=== PATIENT | male | born 1960 | race Caucasian/White ===

== ENCOUNTER → 2018-04-23 | Outpatient (CLI) | payer OTHER ==
--- NOTE | 2018-04-23 23:00 | CT ---
EXAMINATION TYPE: CT lumbar spine wo con DATE OF EXAM: 04/23/2018 COMPARISON: None HISTORY: 58-year-old male with lumbago, chronic low back pain, no injury TECHNIQUE: Contiguous axial scanning of the lumbar spine without IV contrast. Coronal and sagittal re constructions performed. CT DLP: 992 mGycm Automated exposure control for dose reduction was used. FINDINGS: There is a transitional lumbosacral segment which will be denoted as a sacralized L5. There is assimi lation joint on the right and complete bony fusion with the sacrum on the left. Vertebral body heights are preserved and alignment is maintained. Mild to moderate degenerative disc disease at L3-L4 and L4-L5 with disc space narrowing and bulging d isc. Mild facet arthropathy mid to lower lumbar spine. At L2-L3, mild disc bulge and left intraforaminal disc osteophyte complex. This causes moderate left- sided neural foraminal stenosis. No significant spinal canal stenosis. At L3-L4, there is broad-based diffuse disc bulge and right-sided interforaminal disc osteophyte comp lisseth. Changes result in moderate right greater than left neuroforaminal stenosis. Ventral indentation of the thecal sac without significant spinal canal stenosis. At L4-L5, there is bulging disc and disc space narrowing contributing to moderate right neuroforamina l stenosis. No significant spinal canal stenosis. At L5-S1, no spinal canal or foraminal stenosis. IMPRESSION: 1. TRANSITIONAL LUMBOSACRAL SEGMENT DENOTED A SACRALIZED L5. THIS HAS AN ASSIMILATION JOINT ON THE RIGHT AND COMPLETE BONY FUSION WITH THE SACRUM ON THE LEFT. 2. DEGENERATIVE DISC DISEASE FROM L2 THROUGH L5 LEVELS. 3. POSTERIOR DISC PROTRUSION AT L3-L4 WITH A RIGHT INTRAFORAMINAL DISC OSTEOPHYTE COMPLEX ; THIS CONT RIBUTES TO MODERATE RIGHT GREATER THAN LEFT NEUROFORAMINAL STENOSIS. 4. AT L2-L3, MODERATE LEFT NEURAL FORAMINAL STENOSIS AND AT L4-L5, MODERATE RIGHT NEURAL FORAMINAL ST ENOSIS.
== END | disposition home or self-care (01) ==
LOC: RADCTMAIN 19:01
PROVIDERS: ATTEND Psychiatry & Neurology Neurology
DX: M99.73 Connective tissue and disc stenosis of intervertebral foramina of lumbar region (principal); M51.26 Other intervertebral disc displacement, lumbar region; M51.36 Other intervertebral disc degeneration, lumbar region
CPT/HCPCS: 72131

== ENCOUNTER → 2020-08-03 | Outpatient (CLI) | payer OTHER | END | disposition home or self-care (01) | LOC: LABWHC1 15:20 | PROVIDERS: ATTEND Nurse Practitioner Family | DX: Z20.828 Contact with and (suspected) exposure to other viral communicable diseases (principal) | CPT/HCPCS: U0003; C9803 ==

== ENCOUNTER → 2020-09-30 | Outpatient (CLI) | payer OTHER ==
[2020-09-30 20:19] LABS: African American GFR (CKD) 95.1 (60.0-200.0); Albumin 4.7 g/dL (3.80-4.90); Anion Gap 3.6 mmol/L (4.00-12.00); Calcium 9.6 mg/dL (8.7-10.3); Carbon Dioxide 30.4 mmol/L (21.6-31.8); Potassium 4.8 mmol/L (3.5-5.5)
== END | disposition home or self-care (01) ==
LOC: LABWHC1 10:01
PROVIDERS: ATTEND Internal Medicine Nephrology
DX: E78.5 Hyperlipidemia, unspecified (principal); N17.9 Acute kidney failure, unspecified; Z79.1 Long term (current) use of non-steroidal anti-inflammatories (NSAID); N18.2 Chronic kidney disease, stage 2 (mild); I12.9 Hypertensive chronic kidney disease with stage 1 through stage 4 chronic kidney disease, or unspecified chronic kidney disease; J44.1 Chronic obstructive pulmonary disease with (acute) exacerbation
CPT/HCPCS: 36415; 80048; 82040; 83735; 84100

== ENCOUNTER → 2020-10-04 | Outpatient (CLI) | payer OTHER ==
--- NOTE | 2020-10-05 11:02 | P.ARTDOP ---
Arterial Doppler LOWER EXTREMITY ARTERIAL DOPPLER: DATE OF SERVICE: 10/04/2020 Reason for study: Right leg numbness. Doppler waveforms: Multiphasic bilaterally throughout. Pulse volume recording: []. Pressure gradients: None. Ankle-brachial indices: 0.95 on the right and greater than 1 on the left. Toe brachial indices: 0.64 on the right, 0.71 on the left Impression: Normal study.
== END | disposition home or self-care (01) ==
LOC: RADUSWWP 10:16
PROVIDERS: ATTEND Family Medicine
DX: R20.0 Anesthesia of skin (principal)
CPT/HCPCS: 93923

== ENCOUNTER → 2022-09-19 | Outpatient (CLI) | payer OTHER ==
[2022-09-19 17:48] LABS: HCT 47.5 % (39.6-50.0); HGB 15.4 g/dL (13.0-17.0); MCH 29.2 pg (27.0-32.0); MCHC 32.4 g/dL (32.0-37.0); Mean Platelet Volume 9.5 fL (9.5-12.2); NRBC Per 100 WBC 0 /100 WBCS (0.0-0.0); Platelet Count 272 X 10*3/uL (140-440); RBC 5.28 X 10*6/uL (4.40-5.60); RDW 14.1 % (11.5-14.5); WBC 9.42 X 10*3/uL (4.50-10.00)
[2022-09-19 19:46] LABS: African American GFR (CKD) 78.3 (60.0-200.0); Albumin 4.4 g/dL (3.8-4.9); Anion Gap 9.4 mmol/L (10.00-18.00); BUN/Creat Ratio 12.93 Ratio (12.00-20.00); Calcium 9.8 mg/dL (8.7-10.3); Carbon Dioxide 27.9 mmol/L (20.0-27.5); Magnesium 2.2 mg/dL (1.5-2.4); Non-African American GFR(CKD) 67.6 (60.0-200.0); Phosphorus 3.6 mg/dL (2.4-5.1); Potassium 4.4 mmol/L (3.5-5.5); Uric Acid 6.3 mg/dL (3.7-8.7)
== END | disposition home or self-care (01) ==
LOC: LABWHC1 12:20
PROVIDERS: ATTEND Internal Medicine Nephrology
DX: I12.9 Hypertensive chronic kidney disease with stage 1 through stage 4 chronic kidney disease, or unspecified chronic kidney disease (principal); E78.5 Hyperlipidemia, unspecified; N17.9 Acute kidney failure, unspecified; N18.2 Chronic kidney disease, stage 2 (mild)
CPT/HCPCS: 36415; 80048; 82040; 83036; 83735; 84100; 84550; 85027

== ENCOUNTER → 2024-02-18 | Outpatient (CLI) | payer OTHER ==
--- NOTE | 2024-02-20 14:35 | MR ---
EXAMINATION TYPE: MR abdomen wo/w con DATE OF EXAM: 02/18/2024 9:52 PM CLINICAL INDICATION:Male, 64 years old with history of K86.89 OTHER SPECIFIED DISEASES OF PANCREAS; P HH, Pancreatic mass COMPARISON: CT lumbar spine 04/23/2018 TECHNIQUE: Multiplanar multi-sequence imaging was performed without contrast. Post contrast imaging was performed. Post IV contrast subtraction images were also submitted for review. IV Contrast: 6.5 cc Gadavist FINDINGS: LOWER CHEST: No gross irregularity. ABDOMEN Liver: No evidence for cirrhosis. Signal dropout on chemical shift out of phase imaging. Gallbladder and Bile ducts: No evidence for ductal dilation, or biliary stricture or evidence of chol edocholithiasis. The gallbladder is within normal limits. Pancreas: There is a pancreatic head hypoenhancing mass measuring 17 x 12 mm postcontrast imaging anayeli ge 147 and coronal imaging 52 series 1001. Cystic lesions in the pancreatic neck are seen in the post erior aspect with upstream prominence of the main bile duct measuring up to 3 mm in diameter. The 2 c ysts are high T2 signal cyst measuring 12 mm series 1 image 24 and image 25 which could represent dil ated side ducts. Spleen: Normal for size. Adrenal glands: Unremarkable. Kidneys: No evidence for obstructive uropathy. No suspicious renal masses. Stomach and Bowel: No evidence for bowel wall thickening or evidence for obstruction. Retroperitoneum/Peritoneum: No evidence of pneumoperitoneum or free fluid. Vasculature: No aortic aneurysm. Musculoskeletal: The osseous structures appear intact. Lymph Nodes: No gross evidence for lymphadenopathy. Abdominal wall: Unremarkable. IMPRESSION: 1. Pancreatic head hypoenhancing lesion causing upstream dilation of the main pancreatic duct with c ystic lesions possibly representing dilated side branches. ERCP with tissue sampling recommended to r ule out pancreatic adenocarcinoma. Correlate with serum marker CA 19-9. 2. Hepatic steatosis.
== END | disposition home or self-care (01) ==
LOC: RADMRIMAIN 20:30
PROVIDERS: ATTEND Family Medicine
DX: K76.0 Fatty (change of) liver, not elsewhere classified (principal); K86.89 Other specified diseases of pancreas
CPT/HCPCS: 74183; A9585

== ENCOUNTER → 2024-09-17 | Outpatient (CLI) | payer OTHER ==
[2024-09-17 16:01] LABS: Basophils # (A) 0.04 X 10*3/uL (0.00-0.10); Basophils % (A) 0.7 %; Eosinophils % (A) 1.6 %; HGB 12.8 g/dL (13.0-17.0); Lymphocytes # (A) 0.83 X 10*3/uL (0.90-5.00); Lymphocytes % (A) 13.6 %; MCH 29.6 pg (27.0-32.0); MCV 92.6 FL (80.0-97.0); Mean Platelet Volume 10.5 FL (9.5-12.2); Monocytes % (A) 6.6 %; NRBC Per 100 WBC 0 X 10*3/uL (0.00-0.01); Neutrophils # (A) 4.72 X 10*3/uL (1.80-7.70); Neutrophils % (A) 77.3 %; Platelet Count 121 X 10*3/uL (140-440); RBC 4.32 X 10*6/uL (4.40-5.60); RDW 15.3 % (11.5-14.5)
[2024-09-17 17:19] LABS: ALT 44 U/L (10-49); AST 27 U/L (14-35); Albumin 3.1 g/dL (3.8-4.9); Alkaline Phosphatase 570 U/L (41-126); BUN/Creat Ratio 18.71 Ratio (12.00-20.00); Bilirubin, Conjugated 4.33 mg/dL (0.20-0.40); Bilirubin,Unconjugated 1.37 mg/dL (0.20-1.00); Blood Urea Nitrogen 13.1 mg/dL (9.0-27.0); Calcium 8.9 mg/dL (8.7-10.3); Chloride 98 mmol/L (96-109); Globulin 3.1 g/dL (1.6-3.3); Glucose 170 mg/dL (70-110); Potassium 3.7 mmol/L (3.5-5.5); Sodium 136 mmol/L (135-145); Total Bilirubin 5.7 mg/dL (0.3-1.2); Total Protein 6.2 g/dL (6.2-8.2)
== END | disposition home or self-care (01) ==
LOC: LABWHC1 12:05
PROVIDERS: ATTEND Radiology Radiation Oncology
DX: C25.0 Malignant neoplasm of head of pancreas (principal)
CPT/HCPCS: 36415; 80048; 80076; 85025

== ENCOUNTER 2024-11-21 21:04 | Emergency (ER) | payer OTHER ==
[2024-11-21 21:17] VITALS: TEMP 96.9
--- NOTE | 2024-11-21 21:30 | ED ---
General Adult HPI - General Chief complaint: GI Bleed Stated complaint: Abdominal Pain Time Seen by Provider: 11/21/24 21:07 Source: EMS Mode of arrival: EMS - History of Present Illness Initial comments: Patient is a 64-year-old gentleman with a past medical history of pancreatic cancer with metastases to the liver presenting today for multiple episodes of black emesis this evening and abdominal pain. This morning patient had an episode of nonbloody nonbilious emesis. He was tired for most of the day and spent most of the day on the couch. This evening he then went to the bathroom and began having multiple episodes of black tarry emesis. Endorses associated lightheadedness/dizziness and shortness of breath. He does smoke cigars but not cigarettes. Denies any chest pain, cough or hemoptysis. He is not on blood thinners. Endorses diffuse abdominal pain. States last BM was 1 day ago. Endorses subjective fevers and chills. - Related Data Home Medications Medication Instructions Recorded Confirmed Citalopram Hydrobromide [CeleXA] 20 mg PO DAILY 04/01/14 07/31/16 HYDROcodone/APAP 10-325MG [Ring[place] 1 tab PO TID PRN 04/01/14 07/31/16 10-325] Omeprazole [PriLOSEC] 20 mg PO AC-BRKFST 04/01/14 07/31/16 Prazosin [Minipress] 1 mg PO TID 07/31/16 07/31/16 Pregabalin [Lyrica] 225 mg PO BID 07/31/16 07/31/16 Allergies Allergy/AdvReac Type Severity Reaction Status Date / Time No Known Allergies Allergy Verified 11/21/24 21:17 Review of Systems ROS Statement: Those systems with pertinent positive or pertinent negative responses have been documented in the HPI. ROS Other: All systems not noted in ROS Statement are negative. Past Medical History Past Medical History: Cancer, Hypertension Additional Past Medical History / Comment(s): chronic sciatic nerve pain, bradycardia, heart murmur, pancreatic cancer with metastisis to Liver. History of Any Multi-Drug Resistant Organisms: None Reported Past Surgical History: Heart Catheterization, Orthopedic Surgery, Tonsillectomy Additional Past Surgical History / Comment(s): bilateral rotator cuffs. Past Anesthesia/Blood Transfusion Reactions: No Reported Reaction Past Psychological History: No Psychological Hx Reported Smoking Status: Current some day smoker Past Alcohol Use History: Daily Past Drug Use History: None Reported General Exam - General Exam Comments Initial Comments: PE: CONSTITUTIONAL: no apparent distress, chronically ill-appearing, cachectic SKIN: Cool, dry, jaundiced, no hives or petechiae EYES: pupils are equally round, extraocular movements intact without nystagmus, clear conjunctiva, scleral icterus HENT: Normocephalic, atraumatic, dry mucus membranes, oropharynx is clear with a dry black emesis around mouth NECK: , Full range of motion, normal appearance PULMONARY: Scant wheezes throughout the bilateral lung modi without rales, rhonchi or stridor, normal excursion accessory muscle use CARDIOVASCULAR: Regular rate, rhythm, normal S1 and S2. No appreciated murmurs, rubs or gallops. 1+ radial pulses,. No lower extremity edema GASTROINTESTINAL:soft, active bowel sounds throughout, diffusely tender, predominantly in the epigastrium, nondistended, firm, palpable hepatomegaly MUSCULOSKELETAL: Extremities have no gross deformity NEUROLOGIC:_a/o x 3, GCS 15, normal mentation and speech. Moves all extremities x 4 without motor or sensory deficit PSYCHIATRIC:_normal mood and affect, thought process is clear and linear Course Vital Signs 11/21/24 11/21/24 11/21/24 21:07 21:25 21:57 Temperature 96.9 F L Pulse Rate 75 Respiratory 20 Rate Blood Pressure 95/22 104/73 83/52 O2 Sat by Pulse 88 L Oximetry 11/21/24 11/21/24 11/21/24 22:04 22:07 22:16 Temperature Pulse Rate 108 H 108 H Respiratory 20 Rate Blood Pressure 89/56 101/89 O2 Sat by Pulse Oximetry 11/21/24 11/21/24 22:21 23:38 Temperature Pulse Rate 112 H 111 H Respiratory 18 Rate Blood Pressure 85/56 O2 Sat by Pulse 93 L Oximetry Medical Decision Making - Medical Decision Making Was pt. sent in by a medical professional or institution (, [facility], PRINTING PRESS OPERATOR, urgent care, hospital, or shelter...) When possible be specific @ -No Did you speak to anyone other than the patient for history (EMS, parent, family, police, friend...)? What history was obtained from this source @I spoke with EMS personnel patient sister who assisted in writing history. EMS report that patient initially to systolic pressure of 80 however after sees IV fluids patient had stable BPs for the remainder arrival to the hospital. He was noted to have black vomit on his clothing by EMS personnel. Patient sister states that patient has not had a bowel movement for 3 days and today has had multiple episodes of emesis, 1 episode this morning and then this evening multiple episodes, dark black. Patient is set to begin another round of chemotherapy in the next few days. Were old charts reviewed (outside hosp., previous admission, EMS record, old EKG, old radiological studies, urgent care reports/EKG's, shelter records)? Report findings @ -Medical records reviewed-MRI of the abdomen performed on 02/18/2024 showed a "pancreatic head hypoenhancing lesion with upstream dilation of the main pancreatic duct with cystic lesions possibly presenting dilated sidebranches, ERCP with tissue sampling recommended to rule pancreatic adenocarcinoma hepatic steatosis" Differential Diagnosis (chest pain, altered mental status, abdominal pain women, abdominal pain men, vaginal bleeding, weakness, fever, dyspnea, syncope, headache, dizziness, GI bleed, back pain, seizure, CVA, palpatations, mental health, musculoskeletal)? @ -Differential GI Bleed: Esophageal varices, aortoenteric fistula, Arin-Guajardo, gastritis, peptic ulcer disease, diverticulosis, inflammatory bowel disease, hemorrhoids, fissure, colitis, malignancy, Meckel's diverticulum, this is not meant to be an all- inclusive list. EKG interpreted by me (3pts min.). @ -Tachycardia with shortened VT interval, VT interval 112 ms QT/QTc 348/413 ms, there is artifact present,right atrial enlargement, questionable 1mm ST depression, lead III, no STEMI X-rays interpreted by me (1pt min.). @Personally reviewed chest x-ray, I see no evidence of cardiomegaly, consolidations, pneumothorax or pleural effusions, lungs do appear hyperinflated, I agree with radiologist interpretation CT interpreted by me (1pt min.). @ -None done U/S interpreted by me (1pt. min.). @ -None done What testing was considered but not performed or refused? (CT, X-rays, U/S, labs)? Why? CT GI bleed study was considered however waiting on lab results and then CT scan would further delay transfer for definitive care What meds were considered but not given or refused? Why? @O negative PRBCs were ordered and considered however were not prepared in time to be administered prior to transfer Did you discuss the management of the patient with other professionals (professionals i.e. , PA, PRINTING PRESS OPERATOR, lab, RT, psych nurse, director social welfare, lawyers, teacher, retirement officer, case management social worker)? Give summary @ -Yes, case discussed with transferring physician at [facility], please see note below Was smoking cessation discussed for >3mins.? @ -No Was critical care preformed (if so, how long)? Yes 35 minutes Were there social determinants of health that impacted care today? How? (Homelessness, low income, unemployed, alcoholism, drug addiction, transportation, low edu. Level, literacy, decrease access to med. care, senior care, rehab)? @ -No Was there de-escalation of care discussed even if they declined (Discuss DNR or withdrawal of care, Hospice)? @no What co-morbidities impacted this encounter? (DM, HTN, Smoking, COPD, CAD, Cancer, CVA, ARF, Chemo, Hep., AIDS, mental health diagnosis, sleep apnea, morbid obesity)? @ -Pancreatic cancer with metastasis to the liver Was patient admitted / discharged? Hospital course, mention meds given and route, prescriptions, significant lab abnormalities, going to OR and other pertinent info. @Transfer-this is a pleasant 64-year-old gentleman, past medical history of pancreatic cancer with metastases to the liver, presenting today for multiple episodes of dark black emesis this evening. Patient seen and assessed on arrival, he is chronically ill-appearing, jaundiced and cachectic. Dry mucous membranes. Pulse ox 88% on room air, initial blood pressure has a MAP of 73 however repeat is MAP 63, no tachycardia. Wheezing bilateral lung modi. A bdomen is diffusely tender nondistended. Hepatomegaly noted. Patient most likely has an upper GI bleed and we do not have gastroenterology here at this hospital tonight. Ordered Protonix, type and cross, liter IV fluids, Rocephin, comprehensive labs, chest x-ray, fentanyl, DuoNeb. I discussed with patient and his sister the need for immediate transfer for gastroenterology consult for upper GI bleed. They are agreeable w/ plan for vimal. Initiated request for transfer to [facility], where patient's oncologist, Dr. Nicholson, works. I did ultimately decide to order a unit of O negative blood given patient's hypotension and multiple episodes coffee ground emesis, so as to further sta bilize pt for transfer, labs pending. Case discussed with Dr. Burciaga, [facility], ED, kindly accepts pt for transfer . Initial hemoglobin is 14.1 however I suspect this either is an error or not a ccurately reflective of patient's hemoglobin as he remains hypotensive despite liter IV fluid, pale and had multiple episodes coffee-ground emesis prior to arrival. No further episodes since being here, unit of PRBCs is pending, I do not wish to delay transfer for definitive treatment in order to wait for blood so patient may be transferred without starting blood transfusion, otherwise blood work significant for white blood cell count 1.2, chloride 90, bicarb 20, creatinine 1.8, GFR 39, total bilirubin 4.8, AST/ALT 137/184, alk phos 549 troponin 0.016. Blood will not be ready by the time EMS arrives. The patient has been stabilized to the best of our abilities and I feel further delay in transfer to center with definitive care would be detrimental to the patient. I did discuss this with patient and sister at bedside. Patient will be sent on maintenance fluids, called [facility] department, spoke with Dr. Navarro to update them to labs and patient status. Undiagnosed new problem with uncertain prognosis? @ -No Drug Therapy requiring intensive monitoring for toxicity (Heparin, Nitro, Insulin, Cardizem)? @ -No Were any procedures done? @ -No Diagnosis/symptom? @ Upper GI bleed Acute, or Chronic, or Acute on Chronic? @acute Uncomplicated (without systemic symptoms) or Complicated (systemic symptoms)? @complicated Side effects of treatment? @ -No Exacerbation, Progression, or Severe Exacerbation? @ -No Poses a threat to life or bodily function? How? (Chest pain, [place], [place], pneumonia, PE, COPD, DKA, ARF, appy, cholecystitis, CVA, Diverticulitis, Homicidal, Suicidal, threat to staff... and all critical care pts) @ Yes, if left untreated could result in hemorrhagic shock and - Lab Data Result diagrams: 11/21/24 21:34 11/21/24 21:34 Lab Results 11/21/24 11/21/24 11/21/24 Range/Units 21:33 21:34 21:34 WBC 11.2 H (3.8-10.6) k/uL RBC 4.55 (4.30-5.90) m/uL Hgb 14.1 (13.0-17.5) gm/dL Hct 45.7 (39.0-53.0) % MCV 100.4 H (80.0-100.0) fL MCH 31.0 (25.0-35.0) pg MCHC 30.8 L (31.0-37.0) g/dL RDW 14.1 (11.5-15.5) % Plt Count 248 (150-450) k/uL MPV 7.3 Neutrophils % 93 % Lymphocytes % 5 % Monocytes % 2 % Eosinophils % 0 % Basophils % 0 % Neutrophils # 10.4 H (1.3-7.7) k/uL Lymphocytes # 0.5 L (1.0-4.8) k/uL Monocytes # 0.2 (0-1.0) k/uL Eosinophils # 0.0 (0-0.7) k/uL Basophils # 0.0 (0-0.2) k/uL Hypochromasia Slight Macrocytosis Slight PT 11.5 (10.0-12.5) sec INR 1.0 (<1.2) APTT 20.7 L (22.0-30.0) sec Sodium (137-145) mmol/L Potassium (3.5-5.1) mmol/L Chloride (98-107) mmol/L Carbon Dioxide (22-30) mmol/L Anion Gap mmol/L BUN (9-20) mg/dL Creatinine (0.66-1.25) mg/dL Est GFR (CKD-EPI)AfAm (>60 ml/min/1.73 sqM) Est GFR (CKD-EPI)NonAf (>60 ml/min/1.73 sqM) Glucose (74-99) mg/dL Lactic Ac Sepsis Rflx Plasma Lactic Acid Tay (0.7-2.0) mmol/L Calcium (8.4-10.2) mg/dL Magnesium (1.6-2.3) mg/dL Total Bilirubin (0.2-1.3) mg/dL AST (17-59) U/L ALT (4-49) U/L Alkaline Phosphatase (38-126) U/L Ammonia (<30) umol/L Troponin I 0.016 (0.000-0.034) ng/mL Total Protein (6.3-8.2) g/dL Albumin (3.5-5.0) g/dL Lipase (23-300) U/L Blood Type Blood Type Confirm Blood Type Recheck Bld Type Recheck Status Antibody Screen Spec Expiration Date 11/21/24 11/21/24 11/21/24 Range/Units 21:34 21:35 21:40 WBC (3.8-10.6) k/uL RBC (4.30-5.90) m/uL Hgb (13.0-17.5) gm/dL Hct (39.0-53.0) % MCV (80.0-100.0) fL MCH (25.0-35.0) pg MCHC (31.0-37.0) g/dL RDW (11.5-15.5) % Plt Count (150-450) k/uL MPV Neutrophils % % Lymphocytes % % Monocytes % % Eosinophils % % Basophils % % Neutrophils # (1.3-7.7) k/uL Lymphocytes # (1.0-4.8) k/uL Monocytes # (0-1.0) k/uL Eosinophils # (0-0.7) k/uL Basophils # (0-0.2) k/uL Hypochromasia Macrocytosis PT (10.0-12.5) sec INR (<1.2) APTT (22.0-30.0) sec Sodium 138 (137-145) mmol/L Potassium 4.3 (3.5-5.1) mmol/L Chloride 90 L (98-107) mmol/L Carbon Dioxide 20 L (22-30) mmol/L Anion Gap 28 mmol/L BUN 37 H (9-20) mg/dL Creatinine 1.80 H (0.66-1.25) mg/dL Est GFR (CKD-EPI)AfAm 45 (>60 ml/min/1.73 sqM) Est GFR (CKD-EPI)NonAf 39 (>60 ml/min/1.73 sqM) Glucose 197 H (74-99) mg/dL Lactic Ac Sepsis Rflx Plasma Lactic Acid Tay (0.7-2.0) mmol/L Calcium 9.5 (8.4-10.2) mg/dL Magnesium 2.1 (1.6-2.3) mg/dL Total Bilirubin 4.8 H (0.2-1.3) mg/dL AST 137 H (17-59) U/L ALT 184 H (4-49) U/L Alkaline Phosphatase 549 H (38-126) U/L Ammonia (<30) umol/L Troponin I (0.000-0.034) ng/mL Total Protein 7.6 (6.3-8.2) g/dL Albumin 4.1 (3.5-5.0) g/dL Lipase <10 L (23-300) U/L Blood Type O Positive Blood Type Confirm O Positive Blood Type Recheck No Previous Record Bld Type Recheck Status CABO Indicated Antibody Screen NEGATIVE Spec Expiration Date 11/24/2024 - 233911/21/24 11/21/24 Range/Units 21:59 23:02 WBC (3.8-10.6) k/uL RBC (4.30-5.90) m/uL Hgb (13.0-17.5) gm/dL Hct (39.0-53.0) % MCV (80.0-100.0) fL MCH (25.0-35.0) pg MCHC (31.0-37.0) g/dL RDW (11.5-15.5) % Plt Count (150-450) k/uL MPV Neutrophils % % Lymphocytes % % Monocytes % % Eosinophils % % Basophils % % Neutrophils # (1.3-7.7) k/uL Lymphocytes # (1.0-4.8) k/uL Monocytes # (0-1.0) k/uL Eosinophils # (0-0.7) k/uL Basophils # (0-0.2) k/uL Hypochromasia Macrocytosis PT (10.0-12.5) sec INR (<1.2) APTT (22.0-30.0) sec Sodium (137-145) mmol/L Potassium (3.5-5.1) mmol/L Chloride (98-107) mmol/L Carbon Dioxide (22-30) mmol/L Anion Gap mmol/L BUN (9-20) mg/dL Creatinine (0.66-1.25) mg/dL Est GFR (CKD-EPI)AfAm (>60 ml/min/1.73 sqM) Est GFR (CKD-EPI)NonAf (>60 ml/min/1.73 sqM) Glucose (74-99) mg/dL Lactic Ac Sepsis Rflx Y Plasma Lactic Acid Tay 7.0 H* (0.7-2.0) mmol/L Calcium (8.4-10.2) mg/dL Magnesium (1.6-2.3) mg/dL Total Bilirubin (0.2-1.3) mg/dL AST (17-59) U/L ALT (4-49) U/L Alkaline Phosphatase (38-126) U/L Ammonia 19 (<30) umol/L Troponin I (0.000-0.034) ng/mL Total Protein (6.3-8.2) g/dL Albumin (3.5-5.0) g/dL Lipase (23-300) U/L Blood Type Blood Type Confirm Blood Type Recheck Bld Type Recheck Status Antibody Screen Spec Expiration Date Disposition Clinical Impression: Upper GI bleed Disposition: OTHER INSTITUTION NOT DEFINED Condition: Serious Referrals: Edwar Barros MD [Primary Care Provider] - 1-2 days - Out of Hospital Transfer - Req. Specs Out of Hospital Transfer - Requested Specifics: Other Emergency Center ([facility])
--- NOTE | 2024-11-21 21:40 | XR ---
EXAMINATION TYPE: XR chest 1V portable DATE OF EXAM: 11/21/2024 9:35 PM COMPARISON: Chest radiograph 07/31/2016. CLINICAL INDICATION: Male, 64 years old with history of shortness of breath; [facility] TECHNIQUE: XR chest 1V portable Frontal view of the chest. FINDINGS: Lungs/Pleura: There is no evidence of pleural effusion, focal consolidation, or pneumothorax. Pulmonary vascularity: Unremarkable. Heart/mediastinum: Cardiomediastinal silhouette is unremarkable. Musculoskeletal: No acute osseous pathology. Other findings: None IMPRESSION: No acute cardiopulmonary disease/process. [facility], , 11/21/2024 9:38 PM
[2024-11-21] MEDS: PANTOPRAZOLE 40 MG/10 ML VIAL IVP STA (21:41)
[2024-11-21] MEDS: fentaNYL (PF) 50 MCG/ML 2 ML AMP IVP STA (21:41)
[2024-11-21] MEDS: SODIUM CHLORIDE 0.9% 1,000 ML IV STA (21:43)
[2024-11-21 21:44] LABS: Basophils % (A) 0 %; Eosinophils % (A) 0 %; HCT 45.7 % (39.0-53.0); HGB 14.1 gm/dL (13.0-17.5); Hypochromasia Slight; Lymphocytes # (A) 0.5 k/uL (1.0-4.8); Lymphocytes % (A) 5 %; MCHC 30.8 g/dL (31.0-37.0); MCV 100.4 fL (80.0-100.0); Macrocytosis Slight; Mean Platelet Volume 7.3; Monocytes # (A) 0.2 k/uL (0-1.0); Monocytes % (A) 2 %; Neutrophils # (A) 10.4 k/uL (1.3-7.7); Neutrophils % (A) 93 %; Platelet Count 248 k/uL (150-450); RBC 4.55 m/uL (4.30-5.90); RDW 14.1 % (11.5-15.5); WBC 11.2 k/uL (3.8-10.6)
[2024-11-21 21:53] LABS: AST 137 U/L (17-59); African American GFR (CKD) 45 (>60 ml/min/1.73 sqM); Albumin 4.1 g/dL (3.5-5.0); Anion Gap 28 mmol/L; Blood Urea Nitrogen 37 mg/dL (9-20); Calcium 9.5 mg/dL (8.4-10.2); Carbon Dioxide 20 mmol/L (22-30); Chloride 90 mmol/L (98-107); Glucose 197 mg/dL (74-99); Lipase <10 U/L (23-300); Magnesium 2.1 mg/dL (1.6-2.3); Non-African American GFR(CKD) 39 (>60 ml/min/1.73 sqM); Potassium 4.3 mmol/L (3.5-5.1); Sodium 138 mmol/L (137-145); Total Bilirubin 4.8 mg/dL (0.2-1.3); Total Protein 7.6 g/dL (6.3-8.2)
[2024-11-21 22:00] LABS: ALT 184 U/L (4-49); Alkaline Phosphatase 549 U/L (38-126)
[2024-11-21] MEDS: IPRATROPIUM-ALBUTEROL 3 ML NEB INHALATION STA (22:07)
[2024-11-21 22:32] LABS: Prothrombin Time 11.5 sec (10.0-12.5)
[2024-11-21 22:41] LABS: Partial Thromboplastin Time 20.7 sec (22.0-30.0)
[2024-11-21] MEDS: SODIUM CHLORIDE 0.9% 1,000 ML IV SCH (22:41)
[2024-11-21 23:41] VITALS: BP 85/56; PULSE 111; RESP 18
== END 2024-11-21 23:42 | disposition other institution (70) ==
LOC: EC 21:04
DX: K92.2 Gastrointestinal hemorrhage, unspecified (principal); C78.7 Secondary malignant neoplasm of liver and intrahepatic bile duct; Z85.07 Personal history of malignant neoplasm of pancreas; F17.200 Nicotine dependence, unspecified, uncomplicated
CPT/HCPCS: 36415; 94640; 86900; 86901; 80053; 82140; 83605; 83690; 83735; 84484; 85025; 85610; 85730; 86850; 71045; 99285; 96365; 96375; 96361; J0696; J3010; J2470